=== PATIENT | female | born 1955 | race Two or more races ===

== ENCOUNTER → 2019-02-08 | Day surgery (SDC) | payer OTHER ==
[~2019-02-08] MED LIST: AMLO10TA8 PO; HYDR12.58 PO; IV RINGERS,LACTATED 1000ML 1,000 ML IV ONE; IV RINGERS,LACTATED 1000ML 1,000 ML IV SCH; LISI-334 PO; LOVA20TA2 PO; PROPOFOL 20 ML IV ONE
[2019-02-08 10:43] VITALS: BP 146/67
--- NOTE | 2019-02-09 12:06 | PATHOLOGY ---
[facility] Accession Number: [id number] . 01 Material submitted: . PART A: small bowel - SMALL BOWEL BIOPSY PART B: stomach - GASTRIC ANTRUM BIOPSY PART C: esophagus - DISTAL ESOPHAGUS BIOPSY. Modifiers: distal . 01 Clinical history: . Abdominal pain . 02 Diagnosis: A. Small bowel, biopsy: - No pathologic diagnosis. . B. Stomach, antrum, biopsy: - Mild chronic inflammation, nonspecific. - No evidence of Helicobacter pylori on immunoperoxidase stain. . C. Esophagus, distal, biopsy: - Hyperplastic squamous epithelium without significant inflammation. - Separate portions of columnar epithelium with moderate chronic inflammation and intestinal metaplasia, findings compatible with Moctezuma's esophagus. - No evidence of dysplasia. . ([place]:paolo; 02/09/2019) [facility] 02/09/[address] [place] [address] . 02 Electronically signed: . Alfonso Stewart MD, Pathologist NPI- [id number] . 01 Gross description: . A. The specimen is received in formalin, labeled "Lobatos, Rosalind, small bowel BX", are three irregular fragments of zaragoza soft tissue measuring 0.5 x 0.4 x 0.1 cm in aggregate. Entirely submitted in A1. . B. The specimen is received in formalin, labeled "Lobatos, Rosalind, gastric antrum BX", are four irregular fragments of zaragoza soft tissue measuring 0.7 x 0.5 x 0.2 cm in aggregate. Entirely submitted in B1. . C. The specimen is received in formalin, labeled "Lobatos, Rosalind, distal esophagus BX", are few irregular fragments of benitez-zaragoza soft tissue measuring 0.5 x 0.4 x 0.1 cm in aggregate. Entirely submitted in C1. ([facility]; 02/08/2019) [facility] 02/08/[address] [place] [address] . 02 Pathologist provided ICD-10: K29.50, K20.9, K22.70 . 02 CPT . 134364, [id number], [id number] Specimen Comment: A courtesy copy of this report has been sent to Specimen Comment: [phone], . Specimen Comment: Report sent to / DR WAGNER Performed at: 01 [facility] [address] [place] [address] [address], [place] [id number] MD Kristopher Nevarez MD Phone: [phone] [facility]formed at: 02 [facility] [address] [place], [place] [id number] MD Bobby Huitron MD Phone: [phone]
== END ==
LOC: ENDOS 08:32
PROVIDERS: ATTEND Internal Medicine Gastroenterology
DX: K21.0 Gastro-esophageal reflux disease with esophagitis (principal); K29.50 Unspecified chronic gastritis without bleeding; B96.81 Helicobacter pylori [H. pylori] as the cause of diseases classified elsewhere; E78.00 Pure hypercholesterolemia, unspecified; F15.90 Other stimulant use, unspecified, uncomplicated; I10 Essential (primary) hypertension; Z91.040 Latex allergy status; Z87.39 Personal history of other diseases of the musculoskeletal system and connective tissue; Z72.89 Other problems related to lifestyle; Z98.890 Other specified postprocedural states
CPT/HCPCS: 43239; 88305; 88342; J2704